=== PATIENT | male | born 1985 | race African-American/Black ===

== ENCOUNTER 2019-05-07 20:52 | Emergency (ER) | payer OTHER ==
[2019-05-07] MEDS ORDERED: LIDOCAINE 1% MPF 5 ML VIAL ONE (21:10)
[2019-05-07] MEDS ORDERED: TETANUS & DIPHTHERIA TOX,ADULT 0.5 ML VIAL ONE (21:26)
[2019-05-07] MEDS ORDERED: CEFAZOLIN/SWI 1gm 1 GM/10 ML SYR ONE (21:26)
[2019-05-07] MEDS ORDERED: FENTANYL CITR 100 MCG/2 ML ONE (21:48)
--- NOTE | 2019-05-07 23:01 | ER ---
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 EMS stated crush injury with amputation to right thumb. pt was given 200mcg Fentanyl IV, 4mg zofran IV, 200mL NS IV. Care prior to arrival: 20g IV to left AC. Mechanism of Injury: Crush injury from industrial equipment, that had unknown weight. Extrication was not required. Patient was trapped for unknown amount of time. Trauma event details: Injury occurred in the [facility], Injury occurred: in an industrial place of business Injury occurred: May 07, 2019. 20:55 Acuity: LOLIS 2 ak1 20:55 Method Of Arrival: EMS: [facility] ak1 21:03 Transition of care: patient was not received from another setting of care. Onset of ak1 symptoms was May 07, 2019. Risk Assessment: Do you want to hurt yourself or someone else? Patient reports no desire to harm self or others. Initial Sepsis Screen: Does the patient meet any 2 criteria? No. Patient's initial sepsis screen is negative. Does the patient have a suspected source of infection? No. Patient's initial sepsis screen is negative. Historical: - Allergies: 21:02 No Known Allergies; ak1 - Home Meds: 21:02 None [Active]; ak1 - PMHx: 21:02 None; ak1 - PSHx: 21:02 None; ak1 - Immunization history: Last tetanus immunization: unknown. - Social history:: Smoking status: Patient/guardian denies using tobacco. - Ebola Screening: : No symptoms or risks identified at this time. Screenin:00 Abuse screen: Denies threats or abuse. Denies injuries from another. Tuberculosis ak1 screening: No symptoms or risk factors identified. 21:03 Nutritional screening: No deficits noted. Fall Risk None identified. ak1 Primary Survey: 21:00 NO uncontrolled hemorrhage observed. Breathing/Chest: Respiratory pattern: regular, ak1 Respiratory effort: spontaneous, unlabored, Breath sounds: clear. Circulation: Skin temperature: warm, dry. Disability Alert. Exposure/Environment: All clothing and personal items were removed. Forensic evidence collection is not deemed to be indicated at this time. Items placed in patient belonging bag. There is no evidence of uncontrolled external bleeding. 21:52 Reassessment Airway Airway Patent Breathing/Chest Respiratory pattern Regular ak1 Respiratory effort Spontaneous Unlabored Circulation Temperature Warm Dry Disability Alert. Secondary Survey: 21:00 HEENT: No deficits noted. Gastrointestinal: No deficits noted. : No signs and/or ak1 symptoms were reported regarding the genitourinary system. Musculoskeletal: wound to right thumb. Assessment: 20:55 General: Appears in no apparent distress. uncomfortable, Behavior is calm, cooperative. ak1 Pain: Complains of pain in dorsal aspect of distal phalanx of right thumb, dorsal aspect of proximal phalanx of right thumb and right thumbnail. Neuro: Level of Consciousness is awake, alert, obeys commands, Oriented to person, place, time, situation, Moves all extremities. EENT: No signs and/or symptoms were reported regarding the EENT system. Cardiovascular: No deficits noted. Respiratory: Airway is patent Respiratory effort is even, unlabored. GI: No signs and/or symptoms were reported involving the gastrointestinal system. : No signs and/or symptoms were reported regarding the genitourinary system. Derm: Wound noted right hand. Musculoskeletal: right thumb crush injury. 21:51 Reassessment: provider at bedside irrigating and suturing right thumb. ak1 Vital Signs: 21:00 BP 155 / 82; Pulse 94; Resp 18; Temp 98.4; Pulse Ox 100% on R/A; Weight 91.63 kg (R); ak1 Height 6 ft. 2 in. (187.96 cm) (R); Pain 9/10; 21:52 BP 145 / 84; Pulse 89; Resp 16; Pulse Ox 100% on R/A; ak1 21:00 Body Mass Index 25.93 (91.63 kg, 187.96 cm) ak1 Dorian Coma Score: 21:00 Eye Response: spontaneous(4). Verbal Response: oriented(5). Motor Response: obeys ak1 commands(6). Total: 15. Trauma Score (Adult): 21:00 Eye Response: spontaneous(1); Verbal Response: oriented(1); Motor Response: obeys ak1 commands(2); Systolic BP: > 89 mm Hg(4); Respiratory Rate: 10 to 29 per min(4); Dorian Score: 15; Trauma Score: 12 ED Course: 20:53 Patient arrived in ED. jd3 20:55 Estuardo West PA is PHCP. jr8 20:55 Dustin Mayorga MD is Attending Physician. jr8 20:59 Triage completed. ak1 21:00 Patient has correct armband on for positive identification. Placed in gown. Bed in low ak1 position. Call light in reach. Side rails up X2. 21:00 Patient maintains SpO2 saturation greater than 95% on room air. ak1 21:02 Arm band placed on Patient placed in an exam room, on a stretcher, on pulse oximetry, ak1 Patient notified of wait time. 21:02 Assist provider with laceration repair on right hand Set up tray. Maintain EMS IV. ak1 Dressing intact. Site clean \T\ dry. Gauge \T\ site: 20g left AC. 21:03 Thermoregulation: warm blanket given to patient. ak1 21:09 Zac Loera, MIESHA is Primary Nurse. jd3 21:25 Hand Right 3 View XRAY In Process Unspecified. EDMS 21:43 Inserted saline lock: 20 gauge in left forearm, using aseptic technique. cm6 23:00 Jon Thompson MD is Referral Physician. jr8 23:20 IV discontinued, intact, bleeding controlled, No redness/swelling at site. Pressure ak1 dressing applied. 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 Exp: ak1 12/26/2020. Lot #: [id number]. } Route: IM; Site: right deltoid; 21:51 Follow up: Response: No adverse reaction ak1 21:30 Drug: Ancef 1 grams Route: IVPB; Site: left forearm; ak1 21:51 Follow up: IV Status: Completed infusion; IV Intake: 10ml ak1 21:51 Drug: fentaNYL (PF) 50 mcg {Note: RASS 0.} Route: IVP; Site: left forearm; ak1 23:07 Follow up: Response: No adverse reaction; Pain is decreased; RASS: Alert and Calm (0) ak1 23:15 Drug: [place] 10 mg-325 mg 1 tabs Route: PO; jd3 Intake: 21:51 IV: 10ml; Total: 10ml. ak1 Outcome: 23:01 Discharge ordered by . josselyn 23:19 Discharged to home ambulatory, with friend. ak1 23:19 Condition: stable 23:19 Discharge instructions given to patient, Instructed on discharge instructions, follow up and referral plans. no drinking with medication, no driving heavy equipment, medication usage, wound care, Demonstrated understanding of instructions, follow-up care, medications, wound care, Prescriptions given X 1. 23:20 Patient left the ED. ak1 Signatures: Dispatcher [employer] EDMS Estuardo West PA PA jr8 Krenek, Amber RN RN ak1 Zac Loera RN RN Adeline Leal 6
--- NOTE | 2019-05-07 23:02 | EDPHYS ---
Physician Documentation [facility] Name: Poncho Moreno Age: 33 yrs Sex: Male : 1985 Arrival Date: 05/07/2019 Time: 20:53 Bed 5 Private MD: ED Physician Dustin Mayorga HPI: 05/07 21:46 This 33 yrs old Male presents to ER via EMS with complaints of Crush Injury To Hand. jr8 21:46 The patient or guardian reports decreased range of motion, injury, a laceration, pain. jr8 The complaints affect the IP of right thumb. Context: The problem was sustained at work, resulted from a crush injury, by a heavy object. Onset: The symptoms/episode began/occurred acutely, today. Modifying factors: The symptoms are alleviated by nothing, the symptoms are aggravated by movement. Associated signs and symptoms: The patient has no apparent associated signs or symptoms. Severity of symptoms: At their worst the symptoms were moderate, in the emergency department the symptoms are unchanged. The patient has not experienced similar symptoms in the past. The patient has not recently seen a physician. Historical: - Allergies: 21:02 No Known Allergies; ak1 - Home Meds: 21:02 None [Active]; ak1 - PMHx: 21:02 None; ak1 - PSHx: 21:02 None; ak1 - Immunization history: Last tetanus immunization: unknown. - Social history:: Smoking status: Patient/guardian denies using tobacco. - Ebola Screening: : No symptoms or risks identified at this time. ROS: 21:46 Eyes: Negative for injury, pain, redness, and discharge, ENT: Negative for injury, jr8 pain, and discharge, Neck: Negative for injury, pain, and swelling, Cardiovascular: Negative for chest pain, palpitations, and edema, Respiratory: Negative for shortness of breath, cough, wheezing, and pleuritic chest pain, Abdomen/GI: Negative for abdominal pain, nausea, vomiting, diarrhea, and constipation, Back: Negative for injury and pain, Skin: Negative for injury, rash, and discoloration, Neuro: Negative for headache, weakness, numbness, tingling, and seizure. 21:46 MS/extremity: Positive for injury or acute deformity, decreased range of motion, laceration, pain, tenderness, of the IP of right thumb. Exam: 21:46 Eyes: Pupils equal round and reactive to light, extra-ocular motions intact. Lids and jr8 lashes normal. Conjunctiva and sclera are non-icteric and not injected. Cornea within normal limits. Periorbital areas with no swelling, redness, or edema. ENT: Nares patent. No nasal discharge, no septal abnormalities noted. Tympanic membranes are normal and external auditory canals are clear. Oropharynx with no redness, swelling, or masses, exudates, or evidence of obstruction, uvula midline. Mucous membranes moist. Neck: Trachea midline, no thyromegaly or masses palpated, and no cervical lymphadenopathy. Supple, full range of motion without nuchal rigidity, or vertebral point tenderness. No Meningismus. Cardiovascular: Regular rate and rhythm with a normal S1 and S2. No gallops, murmurs, or rubs. Normal PMI, no JVD. No pulse deficits. Respiratory: Lungs have equal breath sounds bilaterally, clear to auscultation and percussion. No rales, rhonchi or wheezes noted. No increased work of breathing, no retractions or nasal flaring. Abdomen/GI: Soft, non-tender, with normal bowel sounds. No distension or tympany. No guarding or rebound. No evidence of tenderness throughout. Back: No spinal tenderness. No costovertebral tenderness. Full range of motion. Skin: Warm, dry with normal turgor. Normal color with no rashes, no lesions, and no evidence of cellulitis. Neuro: Awake and alert, GCS 15, oriented to person, place, time, and situation. Cranial nerves II-XII grossly intact. Motor strength 5/5 in all extremities. Sensory grossly intact. Cerebellar exam normal. Normal gait. 21:46 Musculoskeletal/extremity: Extremities: grossly normal except: noted in the IP of right thumb: Patient has crush injury involving DIP joint and nail bed of thumb. Laceration noted to pad of thumb medial aspect extending through to nail bed with dislodgement of nail. Second small laceration noted to right lateral thumb near nail bed , ROM: intact in all extremities, full passive range of motion, limited active range of motion, in the right thumb, limited active range of motion due to pain, in the right thumb, limited passive range of motion due to pain, in the right thumb, Circulation is intact in all extremities. Sensation intact. Vital Signs: 21:00 BP 155 / 82; Pulse 94; Resp 18; Temp 98.4; Pulse Ox 100% on R/A; Weight 91.63 kg (R); ak1 Height 6 ft. 2 in. (187.96 cm) (R); Pain 9/10; 21:52 BP 145 / 84; Pulse 89; Resp 16; Pulse Ox 100% on R/A; ak1 21:00 Body Mass Index 25.93 (91.63 kg, 187.96 cm) ak1 Bartlett Coma Score: 21:00 Eye Response: spontaneous(4). Verbal Response: oriented(5). Motor Response: obeys ak1 commands(6). Total: 15. Trauma Score (Adult): 21:00 Eye Response: spontaneous(1); Verbal Response: oriented(1); Motor Response: obeys ak1 commands(2); Systolic BP: > 89 mm Hg(4); Respiratory Rate: 10 to 29 per min(4); Dorian Score: 15; Trauma Score: 12 Laceration: 22:54 Wound Repair of 4cm ( 1.6in ) subcutaneous laceration to dorsal aspect of distal jr8 phalanx of right thumb, palmar aspect of distal phalanx of right thumb and right thumbnail. Distal neuro/vascular/tendon intact. Anesthesia: Local anesthetic administered with 4 mls of 0.5% marcaine. Wound prep: Moderate cleansing, Wound irrigation with saline by sd, Copious irrigation. Skin closed with 8 5-0 Prolene using simple sutures and sterile technique. Subcutaneous tissue closed with 2 3-0 Prolene. Patient tolerated well. MDM: 20:55 Patient medically screened. [facility] 22:57 Data reviewed: vital signs, nurses notes, radiologic studies, and as a result, I will jr8 discharge patient. Data interpreted: Pulse oximetry: on room air is 100 %. Interpretation: normal. Counseling: I had a detailed discussion with the patient and/or guardian regarding: the historical points, exam findings, and any diagnostic results supporting the discharge/admit diagnosis, radiology results. ED course: Right thumb nail reduced back in to cuticle area, wound irrigated copiously. Pt tolerated well, will see hand sx for FU. 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 Exp: ak1 12/26/2020. Lot #: [id number]. } Route: IM; Site: right deltoid; 21:51 Follow up: Response: No adverse reaction ak1 21:30 Drug: Ancef 1 grams Route: IVPB; Site: left forearm; ak1 21:51 Follow up: IV Status: Completed infusion; IV Intake: 10ml ak1 21:51 Drug: fentaNYL (PF) 50 mcg {Note: RASS 0.} Route: IVP; Site: left forearm; ak1 23:07 Follow up: Response: No adverse reaction; Pain is decreased; RASS: Alert and Calm (0) ak1 23:15 Drug: [place] 10 mg-325 mg 1 tabs Route: PO; jd3 Disposition: 23:20 Co-signature as Attending Physician, Dustin Mayorga MD. rn Disposition: 05/07/19 23:01 Discharged to Home. Impression: Laceration without foreign body of right thumb with damage to nail. - Condition is Stable. - Discharge Instructions: Laceration Care, Adult, Sutured Wound Care. - Prescriptions for Keflex 500 mg Oral Capsule - take 1 capsule by ORAL route every 8 hours for 5 days; 15 capsule. - Work release form, Medication Reconciliation Form, Thank You Letter form. - Follow up: Jon Thompson MD; When: 2 - 3 days; Reason: Wound Recheck, Recheck today's complaints. - Problem is new. - Symptoms have improved. - Notes: Follow up with Dr. Marina (hand surgery), take ibuprofen and tylenol over the counter for pain the next few days. Take antiobiotics as prescribed. Stitches out in 7-10 days unless instructed otherwise by hand surgery. Signatures: Dispatcher [employer] EDDustin Cheng MD MD rn Roszak, Josh, PA PA jr8 Joselyn Hall RN RN ak1 Zac Loera RN RN jd3 Corrections: (The following items were deleted from the chart) 23:20 23:01 05/07/2019 23:01 Discharged to Home. Impression: Laceration without foreign body ak1 of right thumb with damage to nail. Condition is Stable. Forms are Medication Reconciliation Form, Thank You Letter, Antibiotic Education, Prescription Opioid Use. Follow up: Jon Thompson; When: 2 - 3 days; Reason: Wound Recheck, Recheck today's complaints. Problem is new. Symptoms have improved. jr8
[2019-05-07] MEDS ORDERED: HYDROCODONE/APAP 10/325 TAB ONE (23:15)
[2019-05-08 00:37] VITALS: TEMP 98.4; O2SAT 100
[2019-05-08 00:38] VITALS: BP 145/84
--- NOTE | 2019-05-08 08:33 | RAD REPORT ---
EXAM DESCRIPTION: RAD - Hand Right 3 View - 05/07/2019 9:26 pm CLINICAL HISTORY: Hand pain, crush injury, blunt force trauma to the right thumb COMPARISON: None. FINDINGS: No fracture is identified. There is no dislocation or periosteal reaction noted. Signific ant soft tissue wound present distal thumb. No retained foreign body. IMPRESSION: Soft tissue wound with no foreign body right thumb. No acute bone finding.
== END 2019-05-07 23:20 | disposition home or self-care (01) ==
LOC: ER 20:52
PROC: 0JQJ0ZZ Repair Right Hand Subcutaneous Tissue and Fascia, Open Approach (ICD-10-PCS; principal; 2019-05-07)
DX: S61.111A Laceration without foreign body of right thumb with damage to nail, initial encounter (principal); S67.01XA Crushing injury of right thumb, initial encounter; X58.XXXA Exposure to other specified factors, initial encounter; Y93.89 Activity, other specified; Y92.89 Other specified places as the place of occurrence of the external cause; Y99.8 Other external cause status; Z23 Encounter for immunization
CPT/HCPCS: 90471; 90714; 96365; 96375; 99284; J0690; J3010